=== PATIENT | female | born 1940 ===

== ENCOUNTER 2019-02-05 11:24 | Observation (INO) | payer MEDICARE, OTHER ==
--- NOTE | 2019-02-05 11:53 | ED PDOC ---
Arrival/HPI - General Chief Complaint: Chest Pain Time Seen by Provider: 02/05/19 11:46 Historian: Patient, Family - History of Present Illness Narrative History of Present Illness (Text): 02/05/19 11:50 78 year old female, whose past medical history includes hypertension, slow heart rate, diabetes, hx of leg CA, presents accompanied by family, complaining of midsternal chest discomfort that began 1-2 hours prior to arrival. Patient reportedly received news that her daughter today. Patient is crying and denies any other complaints at this time. Patient denies any fever, chills, shortness of breath, nausea, vomiting, diarrhea, urinary symptoms, back pain, neck pain, headache, dizziness, or any other complaints. Time/Duration: Other (1-2 hours priot to arrival ) Symptom Onset: Gradual Symptom Course: Unchanged Activities at Onset: Light Context: Home Past Medical History - Provider Review Nursing Documentation Reviewed: Yes - Infectious Disease Hx of Infectious Diseases: None - Reproductive Menopause: Yes - Cardiac Hx Cardiac Disorders: Yes Hx Hypertension: Yes - Pulmonary Hx Respiratory Disorders: No - Endocrine/Metabolic Hx Diabetes Mellitus Type 2: Yes - Hematological/Oncological Other/Comment: sarcoma - Musculoskeletal/Rheumatological Hx Musculoskeletal Disorders: No - Psychiatric Hx Substance Use: No - Anesthesia Hx Anesthesia Reactions: No Family/Social History - Physician Review Nursing Documentation Reviewed: Yes Family/Social History: No Known Family HX Smoking Status: Unknown If Ever Smoked Hx Alcohol Use: No Hx Substance Use: No Allergies/Home Meds Allergies/Adverse Reactions: Allergies No Known Allergies Allergy (Verified 02/05/19 12:20) Review of Systems - Physician Review All systems were reviewed & negative as marked: Yes - Review of Systems Constitutional: absent: Fevers, Other (chills) Respiratory: absent: SOB Cardiovascular: Chest Pain Gastrointestinal: absent: Diarrhea, Nausea, Vomiting Genitourinary Female: absent: Dysuria, Frequency, Hematuria Musculoskeletal: absent: Back Pain, Neck Pain Neurological: absent: Headache, Dizziness Physical Exam - Physical Exam Narrative Physical Exam (Text): Gen: VS reviewed, alert, well developed, well nourished, nontoxic, mild distress. tearful ENT: normal pharynx. Eye: EOMI, PERRL. Neck: no JVD, supple, no adenopathy. CV: regular rate, regular rhythm, no rubs, no murmur, no gallops, S1, S2, pulses equal and strong. Pulm: no distress, clear to auscultation, no wheeze, no rhonchi, breath sounds equal, no rales. Abd: soft, nontender, no guarding, no rebound, no rigidity, normal bowel sounds. Ext: no edema. Skin: good color, no rash, no cyanosis. Psych: responds appropriately to questions, normal affect. Neuro: oriented x 3, CN2-12 intact grossly, motor intact, sensation intact. Vital Signs Temp Pulse Resp BP Pulse Ox 02/05/19 11:25 97.7 F 73 18 158/88 H 96 Temperature: Afebrile Blood Pressure: Hypertensive Pulse: Regular Respiratory Rate: Normal Medical Decision Making ED Course and Treatment: 02/05/19 11:53 Impression: 78 year old female presents complaining of chest pain that began 1-2 hours prior to arrival. Plan: -- Reassess and disposition Progress Notes: 02/05/19 15:[address] carmichael. patient to be admitted for chest pain, rule out acs. patient found to have an ekg concerning for subtle lateral ischemia. will order serial troponin x3 and dr. carmichael will follow up with results. consult to dr. alston for cardiology. - EKG Interpretation EKG Interpretation (Text): 02/05/19 11:37 EKG shows Sinus Rhythm at 81 BPM with normal QRS, LVH, lateral ST depression. No old ekg for comparison in [facility] records. Interpreted by me. Interpreted by ED Physician: Yes Type: 12 lead EKG - Scribe Statement The provider has reviewed the documentation as recorded by the Abdirashidibgeorgia Granados Provider Scribe Attestation: All medical record entries made by the Scribe were at my direction and pe rsonally dictated by me. I have reviewed the chart and agree that the record accurately reflects my personal performance of the history, physical exam, medical decision making, and the department course for this patient. I have also personally directed, reviewed, and agree with the discharge instructions and disposition. Disposition/Present on Arrival - Present on Arrival Any Indicators Present on Arrival: No History of DVT/PE: No History of Uncontrolled Diabetes: No Urinary Catheter: No History of Decub. Ulcer: No History Surgical Site Infection Following: None - Disposition Have Diagnosis and Disposition been Completed?: Yes Diagnosis: Chest pain Disposition Time: 15:05 Patient Plan: Observation Condition: STABLE Discharge Instructions (ExitCare): Chest Pain (ED) Forms: [facility] (S[place]i)
[2019-02-05 13:16] LABS: BASO # 0.02 K/mm3 (0.0-2.0); BASO % 0.2 % (0.0-3.0); EOS # 0.2 (0.0-0.7); EOS % 1.9 % (1.5-5.0); HEMOGLOBIN 13.8 g/dL (12.0-16.0); LYMPH % 35.3 % (22.0-35.0); MEAN CELL VOLUME 91.4 fl (80.0-105.0); MEAN CORPUSCULAR HEMOGLOBIN 29.8 pg (25.0-35.0); MEAN CORPUSCULAR HGB CONC 32.6 g/dl (31.0-37.0); MEAN PLATELET VOLUME 12.7 fl (7.0-11.0); MONO # 0.7 (0.1-0.6); MONO % 8.5 % (1.0-6.0); RBC 4.63 10^6/uL (3.5-6.1); RED CELL DISTRIBUTION WIDTH 13.9 % (11.5-14.5); WHITE BLOOD COUNT 8.6 10^3/uL (4.5-11.0)
[2019-02-05 13:20] LABS: INR 1.09; PARTIAL THROMBOPLASTIN TIME 28.6 Seconds (26.9-38.3); PROTHROMBIN TIME 12.3 SECONDS (9.4-12.5)
[2019-02-05 13:22] LABS: ALBUMIN 4.4 g/dL (3.0-4.8); ALT/SGPT 35 U/L (7-56); AST/SGOT 51 U/L (14-36); BLOOD UREA NITROGEN 16 mg/dL (7-21); CALCIUM 9.2 mg/dL (8.4-10.5); GFR NON-AFRICAN AMERICAN > 60; HDL CHOLESTEROL 38 mg/dL (29-60)
[2019-02-05 13:35] LABS: LDL CHOLESTEROL 62 mg/dL (0-129)
--- NOTE | 2019-02-05 13:37 | RAD ---
Date of service: 02/05/2019 HISTORY: chest pain COMPARISON: No prior. TECHNIQUE: 1 view obtained. FINDINGS: LUNGS: No active pulmonary disease. PLEURA: No significant pleural effusion identified, no pneumothorax apparent. CARDIOVASCULAR: Minimal aortic calcification. Aortic tortuosity Mild cardiomegaly no pulmonary vascular congestion. OSSEOUS STRUCTURES: No significant abnormalities. VISUALIZED UPPER ABDOMEN: Normal. OTHER FINDINGS: None. IMPRESSION: No active disease.
[2019-02-05 13:40] LABS: TROPONIN I < 0.01 ng/mL
--- NOTE | 2019-02-05 19:13 | CARD ---
APPROVED REPORT Date of service: 02/05/2019 EKG Measurement Heart [id number] <Conclusion> Sinus rhythm with premature atrial complexes Left axis deviation Incomplete right bundle branch block Left ventricular hypertrophy with repolarization abnormality Abnormal ECG
[2019-02-05 22:58] VITALS: BMI 28.3
--- NOTE | 2019-02-06 09:57 | CP.PCM.CON ---
History of Present Illness - History of Present Illness History of Present Illness: Awake, alert, feels depressed Reason for consultation: Cardiac evaluation of chest pain Brief history of present illness: A 78 year old female who was brought to the ER due to chest pain. She received a news that her daughter and started crying and developed chest discomfort. Denies chest pain or shortness of breath. Daughter at bedside. History of diabetes,hypertension, lymphoma of left tibia with resection. Consult was called for chest pain. Seen and examined by me and Dr. Merritt Review of Systems - Review of Systems All systems: reviewed and no additional remarkable complaints except Review of Systems: as per HPI Past Patient History - Infectious Disease Hx of Infectious Diseases: None - Past Social History Smoking Status: Never Smoked - CARDIAC Hx Cardiac Disorders: Yes Hx Hypertension: Yes - PULMONARY Hx Respiratory Disorders: No - ENDOCRINE/METABOLIC Hx Diabetes Mellitus Type 2: Yes - HEMATOLOGICAL/ONCOLOGICAL Other/Comment: sarcoma - MUSCULOSKELETAL/RHEUMATOLOGICAL Hx Falls: No - PSYCHIATRIC Hx Substance Use: No - ANESTHESIA Hx Anesthesia Reactions: No Meds Allergies/Adverse Reactions: Allergies Allergy/AdvReac Type Severity Reaction Status Date / Time No Known Allergies Allergy Verified 02/05/19 12:20 - Medications Medications: Current Medications Acetaminophen (Tylenol 325mg Tab) 650 mg PO Q6H PRN PRN Reason: Headache Last Admin: 02/05/19 21:12 Dose: 650 mg Acetaminophen (Tylenol 325mg Tab) 650 mg PO Q4H PRN PRN Reason: Fever >100.4 F Acetaminophen (Tylenol 325mg Tab) 650 mg PO Q4H PRN PRN Reason: Pain, Mild (1-3) Aspirin (Aspirin Chewable) 81 mg PO DAILY [facility] Last Admin: 02/06/19 09:30 Dose: 81 mg Famotidine (Pepcid) 40 mg PO [facility] Physical Exam - Constitutional Appears: Non-toxic, No Acute Distress - Head Exam Head Exam: NORMAL INSPECTION, NORMOCEPHALIC - Eye Exam Eye Exam: Normal appearance Pupil Exam: NORMAL ACCOMODATION - ENT Exam ENT Exam: Mucous Membranes Moist - Respiratory Exam Respiratory Exam: Decreased Breath Sounds, Clear to Auscultation Bilateral, NORMAL BREATHING PATTERN - Cardiovascular Exam Cardiovascular Exam: REGULAR RHYTHM, +S1, +S2 - GI/Abdominal Exam GI & Abdominal Exam: Normal Bowel Sounds, Soft - Neurological Exam Neurological exam: Alert, Oriented x3 - Psychiatric Exam Psychiatric exam: Depressed - Skin Skin Exam: Dry, Normal Color, Warm Results - Vital Signs Recent Vital Signs: Last Vital Signs Temp 97.9 F 02/06/19 00:01 Pulse 76 02/06/19 02:00 Resp 19 02/06/19 00:01 BP 130/89 02/06/19 00:01 Pulse Ox 96 02/06/19 00:01 - Labs Result Diagrams: 02/05/19 11:05 02/05/19 11:05 Labs: Laboratory Results - last 24 hr 02/05/19 02/05/19 02/05/19 11:05 11:05 11:05 WBC 8.6 RBC 4.63 Hgb 13.8 Hct 42.3 MCV 91.4 MCH 29.8 MCHC 32.6 RDW 13.9 Plt Count 168 MPV 12.7 H Neut % (Auto) 54.1 Lymph % (Auto) 35.3 H Barnes % (Auto) 8.5 H Eos % (Auto) 1.9 Baso % (Auto) 0.2 Lymph # (Auto) 3.0 Barnes # (Auto) 0.7 H Eos # (Auto) 0.2 Baso # (Auto) 0.02 Absolute Neuts (auto) 4.62 PT 12.3 INR 1.09 APTT 28.6 Sodium 143 Potassium 3.7 Chloride 108 H Carbon Dioxide 22 Anion Gap 17 BUN 16 Creatinine 0.5 L Est GFR ( Amer) > 60 Est GFR (Non-Af Amer) > 60 Random Glucose 129 H Calcium 9.2 Total Bilirubin 0.6 AST 51 H ALT 35 Alkaline Phosphatase 94 Troponin I < 0.01 Total Protein 8.7 H Albumin 4.4 Globulin 4.3 Albumin/Globulin Ratio 1.0 L Triglycerides 205 H Cholesterol 134 LDL Cholesterol Direct 62 HDL Cholesterol 38 TSH 3rd Generation 02/05/19 02/05/19 02/05/19 11:05 19:50 23:15 WBC RBC Hgb Hct MCV MCH MCHC RDW Plt Count MPV Neut % (Auto) Lymph % (Auto) Barnes % (Auto) Eos % (Auto) Baso % (Auto) Lymph # (Auto) Barnes # (Auto) Eos # (Auto) Baso # (Auto) Absolute Neuts (auto) PT INR APTT Sodium Potassium Chloride Carbon Dioxide Anion Gap BUN Creatinine Est GFR ( Amer) Est GFR (Non-Af Amer) Random Glucose Calcium Total Bilirubin AST ALT Alkaline Phosphatase Troponin I < 0.01 < 0.01 Total Protein Albumin Globulin Albumin/Globulin Ratio Triglycerides Cholesterol LDL Cholesterol Direct HDL Cholesterol TSH 3rd Generation 1.18 02/06/19 07:30 WBC RBC Hgb Hct MCV MCH MCHC RDW Plt Count MPV Neut % (Auto) Lymph % (Auto) Barnes % (Auto) Eos % (Auto) Baso % (Auto) Lymph # (Auto) Barnes # (Auto) Eos # (Auto) Baso # (Auto) Absolute Neuts (auto) PT INR APTT Sodium Potassium Chloride Carbon Dioxide Anion Gap BUN Creatinine Est GFR ( Amer) Est GFR (Non-Af Amer) Random Glucose Calcium Total Bilirubin AST ALT Alkaline Phosphatase Troponin I < 0.01 Total Protein Albumin Globulin Albumin/Globulin Ratio Triglycerides Cholesterol LDL Cholesterol Direct HDL Cholesterol TSH 3rd Generation Assessment & Plan - Assessment and Plan (Free Text) Assessment: A 78 year old female who was brought to the ER due to chest pain. She received a news that her daughter and started crying and developed chest discomfort. Denies chest pain or shortness of breath. Daughter at bedside. History of diabetes,hypertension, lymphoma of left tibia with resection. Consult was called for chest pain. No previous cardiac work up at [facility]. EKG showed Normal sinus rhythm with APC's. Chest X ray unremarkable. Troponin negative/normal (0.01 x 40. Atypical chest pain. Ruled out acute coronary artery syndrome. Will order echo and stress test for risk stratification. Can be done as outpatient. 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 Lovenox for DVT prophylaxis. Plan: Denies chest pain or shortness of breath Heart rate stable Blood pressure stable On ASA 81 mg daily For Echo to evaluate LV function For Stress test as out patient Low dose betablocker Lovenox for DVT prophylaxis Continue current treatment Continue current medications TSH,Lipid panel TSH Will follow up Plan and treatment discussed with Dr. Merritt Thank you Dr. Guadarrama for the opportunity of taking care of Kaylynn Cardoza - Date & Time Date: 02/06/19 Time: 06:30
[2019-02-06] MEDS: Enoxaparin 30 mg Syringe SC SCH (10:34)
--- NOTE | 2019-02-06 15:24 | CON ---
DATE: 02/06/2019 HISTORY OF PRESENT ILLNESS: The patient is a 78-year-old female with a history of depression and anxiety, no psychiatric hospitalizations. Her current outpatient psychiatric treatment of prior treatment at [facility] for depression and anxiety. No current psychiatric medications, who was admitted for evaluation of chest pain and in context of recently learning that her daughter . totally understandable change in mood and anxiety levels to this news. I met with the patient at bedside, spoke with her and I also spoke with [id number] this morning. The patient has had intermittent periods of crying, depression and sadness due to of her daughter; however, she does not indicate having thoughts of harm herself or harm anybody else. She is oriented to current circumstances and she is communicative with me and willing to try medications to help her with grief process. She is not hallucinating and her aopagnmu-ov-nzy reports that the patient has good support system at home. She lives with her daughter, her son, her [id number] and her grandchild, so she will not be discharged on her own to deal with grief and [id number] assures me that she will be surrounded by family at this time. At this time, the patient is going to try Prozac and Klonopin p.r.n. and shows fair insight and judgement in treating her symptoms. SOCIAL HISTORY: As noted, the patient lives with her extended family members, daughters, [id number]-arn, son, another daughter and then granddaughter living in multiple family home. PSYCHIATRIC HISTORY: The patient has no history of inpatient hospitalization or suicide attempt. She used to attend [facility]; however, has not attended for while and not currently on psychiatric medications. IMPRESSION: Grief reaction, rule out major depressive disorder and underlying generalized anxiety disorder and panic disorder. RECOMMENDATIONS: I have thoroughly reviewed indication, latency, possible side affects of initiating Prozac and Klonopin for patient to help her with this process. We will start Prozac 10 mg daily and then offer Klonopin 0.25 mg p.o. b.i.d. p.r.n. and 0.5 mg at bedtime p.r.n. to help with her sleep. The patient is not danger to herself or others and the patient is she continues psychiatric care with this provider. Vick Arana MD [facility] # [id number]
--- NOTE | 2019-02-07 01:15 | HP ---
DATE OF EXAM: 02/06/2019 The patient was seen and examined at the bedside on 02/06/2019. CHIEF COMPLAINT: Chest pain. HISTORY OF PRESENT ILLNESS: Ms. Sony Chaidez is a 78-year-old lady with hypertension, slow heart rate, diabetes mellitus, history of lung CA, came with family complaining of mid sternal chest pain, discomfort began 1 to 2 hours before coming to emergency room. The patient reported that her daughter . The patient is crying, denies any other complaints. When I saw the patient in the telemetry, she still having chest pain, but feeling sad, seen by the senior project controls specialist, Dr. Merritt. Discussion done with Dr. Merritt. PAST MEDICAL HISTORY: Hypertension and diabetes mellitus. FAMILY HISTORY: Father and mother, noncontributory. HABITS: No smoking. No drug. No ethanol. ALLERGIES: THE PATIENT IS NOT ALLERGIC WITH ANY MEDICATIONS. REVIEW OF SYSTEMS: The patient was seen and examined at the bedside, looking comfortable. No fever. No chills. No hematuria. No hematochezia. No headache. No dizziness. Positive chest pain. PHYSICAL EXAMINATION VITAL SIGNS: Temperature 98.6, pulse 73, blood pressure 153/93, in the morning 131/93, respiratory rate 18. HEENT: Head; normocephalic, atraumatic. Eyes; PERRLA. Extraocular muscles intact. Conjunctivae clear. Nose patent. Mucous membranes moist. NECK: Supple. No carotid bruits, JVD, or thyromegaly. CHEST: Bilaterally symmetrical. HEART: S1 and S2 positive. LUNGS: Clear to auscultation. ABDOMEN: Soft. Bowel sounds present. No organomegaly. EXTREMITIES: No edema. No cyanosis. NEUROLOGIC: The patient is awake and alert. Moving all four extremities. No focal deficits. LABORATORY DATA: White blood cells 8.6, hemoglobin 13.8, hematocrit 42.3, platelets 158. Sodium 143, potassium 3.7, BUN 16, creatinine 0.5, glucose 129, AST 51, protein 8.7, triglycerides 205. ASSESSMENT AND PLAN: Ms. Sony Chaidez is a 78-year-old lady with hyperchloremia, hyperglycemia, abnormal liver function test, hypertriglyceridemia, history of diabetes mellitus, came with chest pain. The patient lost her daughter, has grief reaction, rule out major depressive disorder and underlying generalized anxiety disorder and panic disorder. Psychiatric is on the case, they started Prozac and Klonopin. Prozac 10 mg p.o. daily and then offer Klonopin 0.25 mg p.o. b.i.d. p.r.n. and 0.5 mg at bedtime. Discussion done with Dr. Merritt, may be the patient went to go for stress test tomorrow. Cardiac enzymes noted is 0.01 x4. Gastrointestinal and deep venous thrombosis prophylaxis. Repeat laboratories. We will follow up. Clari Guadarrama MD MTDD
[2019-02-07 03:13] VITALS: RESP 20
--- NOTE | 2019-02-07 07:00 | CP.PCM.PN ---
Subjective - Date & Time of Evaluation Date of Evaluation: 02/07/19 Time of Evaluation: 06:35 - Subjective Subjective: Awake, alert, crying Reason for consultation: Cardiac evaluation of chest pain, atypical chest pain,History of diabetes,hypertension, lymphoma of left tibia with resection Seen and examined by me and Dr. Merritt Objective - Vital Signs/Intake and Output Vital Signs (last 24 hours): Temp Pulse Resp BP Pulse Ox 97.8 F 67 20 136/67 97 02/07/19 06:00 02/07/19 06:00 02/07/19 06:00 02/07/19 06:00 02/07/19 06:00 Intake and Output: 02/07/19 02/07/19 06:59 18:59 Intake Total 0 Output Total 0 Balance 0 - Medications Medications: Current Medications Acetaminophen (Tylenol 325mg Tab) 650 mg PO Q6H PRN PRN Reason: Headache Last Admin: 02/05/19 21:12 Dose: 650 mg Acetaminophen (Tylenol 325mg Tab) 650 mg PO Q4H PRN PRN Reason: Fever >100.4 F Acetaminophen (Tylenol 325mg Tab) 650 mg PO Q4H PRN PRN Reason: Pain, Mild (1-3) Amlodipine Besylate (Norvasc) 5 mg PO DAILY [facility] Aspirin (Aspirin Chewable) 81 mg PO DAILY [facility] Last Admin: 02/06/19 09:30 Dose: 81 mg Clonazepam (Klonopin) 0.5 mg PO HS PRN; Protocol PRN Reason: Insomnia Last Admin: 02/06/19 21:18 Dose: 0.5 mg Clonazepam (Klonopin) 0.25 mg PO BID PRN; Protocol PRN Reason: Anxiety Enoxaparin Sodium (Lovenox) 30 mg SC DAILY [facility]; Protocol Last Admin: 02/06/19 10:34 Dose: 30 mg Famotidine (Pepcid) 40 mg PO HS [facility] Last Admin: 02/06/19 21:18 Dose: 40 mg Fenofibrate (Tricor) 145 mg PO DAILY [facility] Fluoxetine HCl (Prozac) 10 mg PO DAILY [facility] Last Admin: 02/06/19 13:03 Dose: 10 mg Metoprolol Tartrate (Lopressor) 25 mg PO BID [facility] Last Admin: 02/06/19 17:45 Dose: 25 mg - Labs Labs: 02/05/19 11:05 02/05/19 11:05 PT 12.3 SECONDS (9.4-12.5) 02/05/19 11:05 INR 1.09 02/05/19 11:05 APTT 28.6 Seconds (26.9-38.3) 02/05/19 11:05 - Constitutional Appears: Non-toxic, No Acute Distress - Head Exam Head Exam: NORMAL INSPECTION, NORMOCEPHALIC - Eye Exam Eye Exam: Normal appearance Pupil Exam: NORMAL ACCOMODATION - ENT Exam ENT Exam: Mucous Membranes Moist, Normal Exam - Respiratory Exam Respiratory Exam: Decreased Breath Sounds, Clear to Ausculation Bilateral, NORMAL BREATHING PATTERN - Cardiovascular Exam Cardiovascular Exam: Bradycardia, +S1, +S2 - GI/Abdominal Exam GI & Abdominal Exam: Soft, Normal Bowel Sounds - Extremities Exam Extremities Exam: Full ROM, Normal Capillary Refill - Neurological Exam Neurological Exam: Alert, Awake, Oriented x3 - Psychiatric Exam Psychiatric exam: Depressed - Skin Skin Exam: Dry, Normal Color, Warm Assessment and Plan - Assessment and Plan (Free Text) Assessment: A 78 year old female who was brought to the ER due to chest pain. She received a news that her daughter and started crying and developed chest discomfort. Denies chest pain or shortness of breath. Daughter at bedside. History of diabetes,hypertension, lymphoma of left tibia with resection. Consult was called for chest pain. No previous cardiac work up at [facility]. EKG showed Normal sinus rhythm with APC's. Chest X ray unremarkable. Troponin negative/normal (0.01 x 40. Atypical chest pain. Ruled out acute coronary artery syndrome. For echo and stress test today. Plan: For echo today For Stress test today Crying due to demise of daughter Wanted to go home today after procedures for the Denies chest pain or shortness of breath Heart rate stable Blood pressure stable On ASA 81 mg daily, Norvasc 5 mg daily,Lopressor 25 mg BID Tricor 145 mg daily Continue current treatment Continue current medications Further recommendations after Echo and Stress test Will follow up Plan and treatment discussed with Dr. Merritt
[2019-02-07 07:12] LABS: HDL CHOLESTEROL 33 mg/dL (29-60)
[2019-02-07 07:24] LABS: LDL CHOLESTEROL 67 mg/dL (0-129)
[2019-02-07] MEDS ORDERED: Aminophylline 25 mg/ml Inj ONE (11:31)
[2019-02-07] MEDS: Enoxaparin 30 mg Syringe SC SCH (14:55)
[2019-02-07 18:04] VITALS: BP 132/86; PULSE 86; TEMP 98.1; O2SAT 98
--- NOTE | 2019-02-07 18:19 | CARD ---
APPROVED REPORT Date of service: 02/07/2019 EXAM: Two-dimensional and M-mode echocardiogram with Doppler and color Doppler. INDICATION LV Function:SystolicDiastolic 2D DIMENSIONS IVSd1.1 (0.7-1.1cm)LVDd4.4 (3.9-5.9cm) PWd1.2 (0.7-1.1cm)LVDs3.1 (2.5-4.0cm) FS (%) 29.8 %LVEF (%)57.2 (>50%) M-Mode DIMENSIONS Aortic Root3.90 (2.2-3.7cm)Aortic Cusp Exc.1.80 (1.5-2.0cm) Aortic Valve AoV Peak Dvyzbubi188.0cm/[place] Peak GR.13mmHgAI P 1/2 [id number] Mitral Valve MV E Hgobbdoz35.8cm/sMV A Nllorxsn44.1cm/sE/A ratio0.7 TDI Lateral E' Peak V7.41cm/sMedial E' Peak V7.41cm/sE/Lateral E'6.9 E/Medial E'6.9 Pulmonary Valve PV Peak Owphymbe70.7cm/sPV Peak Grad.4mmHg Tricuspid Valve TR Peak [id number]/sRAP [id number] Peak Gr.19mmHg [id number] LEFT VENTRICLE The left ventricle is normal size. There is normal left ventricular wall thickness. The left ventricular function is normal.EF-55-60% There is normal LV segmental wall motion. Transmitral Doppler flow pattern is Grade III-reversible restrictive diastolic dysfunction. No left ventricle thrombus noted on this study. There is no ventricular septal defect visualized. There is no left ventricular aneurysm. There is no mass noted in the left ventricle. RIGHT VENTRICLE The right ventricle is normal size. There is normal right ventricular wall thickness. The right ventricular systolic function is normal. ATRIA The left atrium size is normal. The right atrium size is normal. The interatrial septum is intact with no evidence for an atrial septal defect. AORTIC VALVE The aortic valve is thickened but opens well. The aortic valve is mildly to moderately thickened. There is trace to mild aortic regurgitation. There is aortic sclerosis but no aortic valvular stenosis. There is no aortic valvular vegetation. MITRAL VALVE The mitral valve is thickened but opens well. Mitral regurgitation is trace. There is no mitral valve stenosis. There is no evidence of mitral valve prolapse. TRICUSPID VALVE The tricuspid valve leaflets are thickened , but open well. There is trace tricuspid regurgitation. There is no tricuspid valve stenosis. There is no tricuspid valve prolapse or vegetation. PULMONIC VALVE The pulmonary valve is normal in structure. There is trace pulmonic valvular regurgitation. There is no pulmonic valvular stenosis. GREAT VESSELS The aortic root is normal in size. The ascending aorta is normal in size. The pulmonary artery is normal. The IVC is normal in size and collapses >50% with inspiration. PERICARDIAL EFFUSION There is no pleural effusion. There is a trace pericardial effusion. <Conclusion> Normal chamber Size. EF-55-60% There is trace to mild aortic regurgitation. There is aortic sclerosis but no aortic valvular stenosis Mitral regurgitation is trace. There is trace tricuspid regurgitation. There is trace pulmonic valvular regurgitation. The IVC is normal in size and collapses >50% with inspiration. There is a trace pericardial effusion.
--- NOTE | 2019-02-07 18:46 | CON ---
DATE: 02/07/2019 HISTORY OF PRESENT ILLNESS: The patient is a 78-year-old female with history of depression and anxiety. No psychiatric hospitalizations, who the psychiatrist is following up on the medical floor while she is being medically stabilized and evaluated for chest pain after she found out that her daughter . The psychiatrist met with her yesterday and again today. The patient is tolerating the medications I had started for her and this includes Prozac 10 mg and Klonopin during the day and at night. She still is not sleeping well. She still has thoughts of crying and sadness, which is a relatively normal reaction in consideration of the current grief process. She is agreeable to increase the dose of Prozac at this time. She is aware that the minimal therapeutic dose is 20 mg and she is also requesting help her sleep with right now. IMPRESSION: Grief reaction, rule out major depressive disorder and underlying generalized anxiety disorder and panic disorder. RECOMMENDATIONS: We will increase Prozac to 20 mg. Continue Klonopin at current doses and start Seroquel 12.5 mg at bedtime p.r.n. to help with sleep. The patient was advised to only take Klonopin and Seroquel as p.r.n. and not to take it everyday as the effectiveness of the medication can decrease with the increased use. Vick Arana MD
--- NOTE | 2019-02-07 22:54 | CARD ---
APPROVED REPORT Date of service: 02/07/2019 Protocol: LEXISCAN Test Type: Lexiscan Sestamibi Stress Test Attending Physician: Dr. Lesa Sharif Referring Physician: Dr. Clari Guadarrama Test Indications: Chest Pain Height:5 ft 1 in Weight:153lbs Medications: TYLENOL, NORVASC, ASPIRIN KLONOPIN, LOVENOX, PEPCID, PROZAC LOPRESSOR, TRICOR Medical History: 78 YEAR OLD FEMALE WITH H/O HTN AND DIABETES Target HR: 143 bpm Resting ECG: Sinus Rythm. PACs. Lt.Ant.Fernando-Block.Non Specific ST_T Mina Resting Heart Rate: 83 bpm Resting Blood Pressure: 144/86mmHg Submaximum (85%): 122 bpm PROCEDURE Pharmacologic stress testing was performed using 0.4mg per 5ml of regadenoson given intravenously over 7-10 seconds. Reversal agent aminophyline 100 mg, given intravenously for Chest Pain. POST EXERCISE Reason for Termination: Protocol completed Target HR: No Max HR: 83 bpm 76% of Maximum Predicted HR: 143 bpm Exercise duration: 00:42 min:sec, 0 Stage Exercise capacity: 1.0METs Max Blood Pressure: 144/86mmHg Blood Pressure response to exercise: resting hypertension - appropriate response Heart Rate response to exercise: appropriate Chest Pain: Yes, Mild Chest Pain Like Tightness. Angina index: 0 Arrhythmia: Yes, PACs. ST Change: Yes, No Additional ST_T Changes. Deviation: 0 mm INTERPRETATION Stress EKG Conclusion: IV LEXISCAN NUCLEAR STRESS TEST DUIRING WHICH PATIENT FELT MILD CHEST PAIN LIKE TIGHTNESS. NO ST-T CHANGES SEEN. NUCLEAR SCAN REPORT PENDING. Signed by Lesa Sharif Electronically Approved: 02/07/2019 13:12:12 EXAM: Myocardial Perfusion REST/STRESS Stress Test Type: Pharmacologic Imaging Protocol The imaging protocol used to acquire images was Rest Tc-99m/stress Tc-99m 1 day Rest Spect myocardial perfusion imaging was performed in supine position 45 minutes following the injection of 10.3 mCi of Tc-99 Myoview. At peak stress, the patient was injected intravenously with 30.8mCi of Tc-99 tetrofosmin after an infusion time of 0 minutes and 10 seconds. Gated Stress Spect was performed 65 minutes after intravenous Tc-99 Myoview injection. The images were gated to evaluate regional wall motion and calculate ventricular ejection fraction.Images were reconstructed using backfilter projection method in short horizontal and verticle long axis. Spect slices were generated. LV Perfusion The quality of the study is good. The left ventricle is within normal limits in size. The right ventricle is unremarkable. The lung uptake is normal. The distribution of tracer reveals mildly decreased perfusion involving apical wall on the stress study. The remainder of the LV myocardium is unremarkable. The rest myocardial perfusion study shows no significant change. Wall Motion Wall motion study shows good contractility of the left ventricle. LVEF = 59%. Conclusion 1. Essentially normal SPECT myocardial perfusion study. 2. Fixed, apical defect is most likely due to breast attenuation. 3. Normal gated wall motion of the left ventricle.
== END 2019-02-07 20:41 | disposition home or self-care (01) ==
LOC: ED 11:24 → ERH 19:33 → 2RSO 22:32
PROVIDERS: ADMIT Internal Medicine; ATTEND Internal Medicine
DX: R07.89 Other chest pain (principal); E11.9 Type 2 diabetes mellitus without complications; I10 Essential (primary) hypertension; F32.9 Major depressive disorder, single episode, unspecified; F43.22 Adjustment disorder with anxiety; Z85.72 Personal history of non-Hodgkin lymphomas; Z85.118 Personal history of other malignant neoplasm of bronchus and lung
CPT/HCPCS: 36415; 71045; 78452; 80053; 80061; 83036; 84443; 84484; 85025; 85610; 85730; 93005; 93017; 93306; 96372; 99283; A9502; G0378; J1650